=== PATIENT | female | born 1990 | race Caucasian/White ===

== ENCOUNTER 2020-03-18 20:43 | Emergency (ER) | payer SELFPAY ==
--- OUTSIDE RECORDS SUMMARY | 2020-03-18 20:52 | XMS REPORT | Continuity of Care Document ---
Author Organization Unknown Address Unknown Phone Unavailable Allergies Active Description Code Type Severity Reaction Onset Reported/Identified Relationship to Patient Clinical Status Yes penicillin NKMA N/A N/A 06/01/2016 Medications Medication Packaging Start Date St op Date Route Dosage Sig ondansetron(Zofran) 2 mL 06/01/2016 IV Push 4 mg 4 mg = 2 mL, IV Push, q30min, PRN: Nausea or Vomiting aspirin(aspirin) 4 tabs 06/01/2016 Oral 324 mg 324 mg = 4 tabs, Oral, Once, PRN: Other (See Comment) naproxen(Naprosyn) 2 tabs 06/01/2016 06/01/2016 Oral 500 mg 500 mg = 2 tabs, Oral, Once HYDROcodone-acetaminophen(No rco 5 mg-325 mg oral tablet) 1 tabs 06/01/2016 06/03/2016 Oral 1 tabs, Oral, q4 hr, for 2 days, PRN: as needed for pain, 12 tabs, 0 Refill(s) naproxen(Naprosyn 500 mg oral tablet) 1 tabs 06/01/2016 06/11/2016 Oral 500 mg 500 mg = 1 tabs, Oral, BID, for 10 days, PRN: as needed for pain, 20 tabs, 0 Refill(s) Divalproex Sodium 500 MG Ora l Tablet Delayed Release UD 12/22/2018 01/22/2019 ORAL 500MG 1 tab. at 4 am for 7 days th en 2 tab. at 4 am thereafter. Problems Date Dx Coded Attending Type Code Diagnosis Diagnosed By 06/04/2016 Sher Gee Final R07.8 9 Other chest pain 06/04/2016 Sher Gee Reason R07. 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 Margot Rodríguez 11/25/2018 F F31.32 Bip olar disorder, current episode depressed, moderate Margot Rodríguez 11/25/2018 F F41.1 Gene ralized anxiety disorder Salter Path, Margot Michele 11/25/2018 F F60.9 Pers onality disorder, unspecified Marcos, Margot Michele 11/25/2018 F Z56.0 Unem ployment, unspecified Marcos, Margotlara Michele 11/25/2018 F Z59.5 Extr luis f poverty Margot Rodríguez 11/25/2018 F Z75.3 Unav ailability and inaccessibility of health-care facilities Margot Rodríguez 11/25/2018 F F31.32 Bip olar disorder, current episode depressed, moderate Psy, Batch 11/25/2018 F F41.1 Gene ralized anxiety disorder Psy, Batch 11/25/2018 F F60.9 Pers onality disorder, unspecified Psy, Batch 12/22/2018 F 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 Lowe, Teodora 12/22/2018 F F31.32 Bip olar disorder, current episode depressed, moderate Lowe, Teodora 12/22/2018 F F41.1 Gene ralized anxiety disorder Lowe, Teodora 12/22/2018 F Z56.0 Unem ployment, unspecified Lowe, Teodora 01/05/2019 F 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 JaceNavid garnettley Heidi 01/05/2019 F F31.32 Bip olar disorder, current episode depressed, moderate Jace, Lizzie Heidi 01/05/2019 F F41.1 Gene ralized anxiety disorder Jace, Lizzie Heidi 01/05/2019 F Z56.0 Unem ployment, unspecified Jace, Lizzie Heidi Procedures Code Description [place] [address] Admi ssion Intake Margot Rodríguez 11/25/2018 28837 Admi ssion Intake Margot Rodríguez 11/25/2018 17167 OFFI CE/OUTPATIENT VISIT, Ubaldo Thapa 12/22/2018 52165 OFFI CE/OUTPATIENT VISIT, Ubaldo Thapa 12/22/2018 Results Test Result Range CBC With Platelet and Differential - 01:51 Absolute Basophils 0.03 10*3 0.00-0.20 Absolute Eosinophils 0.07 10*3 0.00-0.50 Absolute Lymphocytes 1.97 10*3 0.80-3.30 Absolute Monocytes 0.57 10*3 0.30-1.00 Absolute Neutrophils 3.66 10*3 1.90-7.00 Basophils 1 % 0-2 Eosinophils 1 % 0-4 HCT 39.9 % 37.0-47.0 HGB 13.0 g/dL 12.0-16.0 Immature Granulocytes 0.0 % 0.0-1.0 Lymphocytes 31 % 20-46 MCH 30.0 pg 27.0-32.0 MCHC 32.6 g/dL 32.0-36.0 MCV 91.9 fL 82.0-99.0 Monocytes 9 % 4-11 MPV 9.8 fL 9.4-12.4 Neutrophils 58 % 51-75 Platelet Count 360 K/uL 150-400 RBC 4.34 10*6/uL 4.00-5.20 RDW 13.3 % 11.5-14.5 WBC 6.3 K/uL 4.8-10.8 Comprehensive Metabolic Panel (CMP) - 01:51 Albumin 4.1 g/dL 3.5-4.8 Alkaline Phosphatase 70 U/L 26-104 ALT (SGPT) 13 U/L 14-54 Anion Gap 7 NA 3-20 AST (SGOT) 19 U/L 15-41 Bilirubin Total 0.9 mg/dL 0.2-1.2 BUN 11 mg/dL 4-20 Calcium 9.1 mg/dL 8.6-10.0 Chloride 109 mEq/L 99-109 CO2 24 mEq/L 22-32 Creatinine 0.89 mg/dL 0.44-1.03 Globulin 3.0 g/dL 1.9-4.3 Glucose 106 mg/dL 70-100 Potassium 3.6 mEq/L 3.6-5.1 Protein 7.1 g/dL 6.1-7.9 Sodium 140 mEq/L 136-144 eGFR - 06/01/16 01:51 eGFR >60 NA >60 Troponin - 06/01/16 01:51 Troponin <0.05 ng/mL <0.06 D-Dimer - 06/01/16 01:51 D-Dimer 336 ng/mL FEU 0-600 Troponin NPT - 06/01/16 02:02 Troponin NPT Negative NA Radiology Report from [id number] on 06/02 01:44:00 Reason For ExamChest painREPORTINDICATIO N: Chest pain.FINDINGS: Heart and lungs appeared normal. There is no pleural pathology.IMPRESSION: Negative.Dictated on workstation:[id number] FINAL DICTATED BY: CARLOS JONAS MDDICTATED DT/TM: 06/01/2016 6:42 AMSIGNED BY: CARLOS JONAS MDSIGNED (ELECTRONIC SIGNATURE): 06/01/2016 8:31 AMTECHNOLOGIST: ODIN POSADA RT(R)(M) Encounters ACCT No. Visit Date/Time Discharge Status Pt. Type Provider Facility Loc./Unit Complaint [id number] 08/19/2019 16:47:44 08/19/2019 23:59:5 9 CLS Outpatient Johnny Ferreira [id number] 06/01/2016 01:24:00 03:49:00 DIS Emergency Sher Gee [facility] chest wall pain [id number] 06/01/2016 05:18:04 Document Registration [id number] 06/01/2016 01:24:00 Document Registration [id number] 12/22/2018 10:00:00 12/22/2018 23:5 9:59 CLS Unknown
--- OUTSIDE RECORDS SUMMARY | 2020-03-18 20:52 | XMS REPORT | Referral Summary ---
Author Author [facility] Organization [facility] Address Unknown Phone Unavailable Care Team Providers Care Communications Manager Name Role Phone No PCP, Pt States PCP Encounter Date(s): 06/01/16 - 06/01/16 [facility] [address] [place] [id number] [phone] Discharge Diagnosis: Acute chest wall pain Discharge Disposition: 01-Home or Self Care Attending Physician: Sher Gee DO Admitting Physician: Sher Gee DO Vital Signs Most recent to 1 oldest [Reference Range]: Temperature Oral 36.7 degC [35.8-37.3 degC] (06/01/16 1:31 AM) Peripheral Pulse 66 bpm Rate [60-100 bpm] (06/01/16 1:31 AM) Heart Rate Monitored 56 bpm [60-100 bpm] *LOW* (06/01/16 3:34 AM) Respiratory Rate 7 br/min [14-20 br/min] *LOW* (06/01/16 3:34 AM) Blood Pressure 94/63 mmHg [90-140/60-90 mmHg] (06/01/16 3:34 AM) Mean Arterial 69 mmHg Pressure, Cuff (06/01/16 3:34 AM) SpO2 99 % (06/01/16 3:34 AM) Problem List Condition Effective Dates Status Health Status Informan t Hypoglycemia(Confirm Active ed) Allergies, Adverse Reactions, Alerts Substance Reaction Severity Status penicillin Active Medications Naprosyn 500 mg oral tablet 500 mg 1 tabs, Oral, BID, as needed for pain, X 10 days, # 20 tabs, 0 Refill(s) Start Date: 06/01/16 Stop Date: 06/11/16 Status: Ordered Gays 5 mg-325 mg oral tablet 1 tabs, Oral, q4hr, as needed for pain, X 2 days, # 12 tabs, 0 Refill(s) Start Date: 06/01/16 Stop Date: 06/03/16 Status: Ordered Results Hematology Most recent to 1 oldest [Reference Range]: WBC [4.8-10.8 6.3 10*3/uL 10*3/uL] (06/01/16 1:51 AM) RBC [4.00-5.20] 4.34 (06/01/16 1:51 AM) Hgb [12.0-16.0 13.0 gm/dL gm/dL] (06/01/16 1:51 AM) Hct [37.0-47.0 %] 39.9 % (06/01/16 1:51 AM) MCV [82.0-99.0 fL] 91.9 fL (06/01/16 1:51 AM) MCH [27.0-32.0 pg] 30.0 pg (06/01/16 1:51 AM) MCHC [32.0-36.0 32.6 gm/dL gm/dL] (06/01/16 1:51 AM) RDW [11.5-14.5 %] 13.3 % (06/01/16 1:51 AM) Platelet [150-400 360 10*3/uL 10*3/uL] (06/01/16 1:51 AM) MPV [9.4-12.4 fL] 9.8 fL (06/01/16 1:51 AM) Immature 0.0 % Granulocytes (06/01/16 1:51 AM) [0.0-1.0 %] Neutrophils [51-75 58 % %] (06/01/16 1:51 AM) Lymphocytes [20-46 31 % %] (06/01/16 1:51 AM) Monocytes [4-11 %] 9 % (06/01/16 1:51 AM) Eosinophils [0-4 %] 1 % (06/01/16 1:51 AM) Basophils [0-2 %] 1 % (06/01/16 1:51 AM) Neutro Absolute 3.66 10*3 [1.90-7.00 10*3] (06/01/16 1:51 AM) Lymph Absolute 1.97 10*3 [0.80-3.30 10*3] (06/01/16 1:51 AM) [place] Absolute 0.57 10*3 [0.30-1.00 10*3] (06/01/16 1:51 AM) Eos Absolute 0.07 10*3 [0.00-0.50 10*3] (06/01/16 1:51 AM) Baso Absolute 0.03 10*3 [0.00-0.20 10*3] (06/01/16 1:51 AM) Coagulation Most recent to 1 oldest [Reference Range]: D-Dimer [0-600 336 ng{FEU}/mL 1 ng{FEU}/mL] (06/01/16 1:51 AM) 1Result Comment: A D Dimer result of <500 ng/mL FEU has a negative predictive value of approximately 100% for the exclusion of DVT and acute PE. Chemistry Most recent to 1 oldest [Reference Range]: Sodium Lvl [136-144 140 mEq/L mEq/L] (06/01/16 1:51 AM) Potassium Lvl 3.6 mEq/L [3.6-5.1 mEq/L] (06/01/16 1:51 AM) Chloride [99-109 109 mEq/L mEq/L] (06/01/16 1:51 AM) CO2 [22-32 mEq/L] 24 mEq/L (06/01/16 1:51 AM) AGAP [3-20] 7 (06/01/16 1:51 AM) BUN [4-20 mg/dL] 11 mg/dL (06/01/16 1:51 AM) Glucose Lvl [70-100 106 mg/dL mg/dL] *HI* (06/01/16 1:51 AM) Creatinine Lvl 0.89 mg/dL [0.44-1.03 mg/dL] (06/01/16 1:51 AM) eGFR [>60] >60 1 (06/01/16 1:51 AM) Calcium Lvl 9.1 mg/dL [8.6-10.0 mg/dL] (06/01/16 1:51 AM) Albumin Lvl [3.5-4.8 4.1 gm/dL gm/dL] (06/01/16 1:51 AM) Total Protein 7.1 gm/dL [6.1-7.9 gm/dL] (06/01/16 1:51 AM) Globulin [1.9-4.3 3.0 gm/dL gm/dL] (06/01/16 1:51 AM) ALT [14-54 U/L] 13 U/L *LOW* (06/01/16 1:51 AM) AST [15-41 U/L] 19 U/L (06/01/16 1:51 AM) Alk Phos [26-104 70 U/L U/L] (06/01/16 1:51 AM) Bili Total [0.2-1.2 0.9 mg/dL 2 mg/dL] (06/01/16 1:51 AM) Troponin [<0.06 <0.05 ng/mL ng/mL] (06/01/16 1:51 AM) Troponin-POC Negative (06/01/16 2:02 AM) 1Result Comment: Multiply eGFR results by 1.21 for race. 2Result Comment: Naproxen, specifically the metabolite O-desmethylnaproxen, may cause spurious elevation in Total Bilirubin levels. Immunizations No data available for this section Procedures No data available for this section Social History Social History Type Response Smoking Status Current some day smoker; Ty pe: Cigarettes; Type: Oral Assessment and Plan No data available for this section
[2020-03-18 21:19] LABS: CLARITY,URINE CLOUDY; COLOR,URINE YELLOW
[2020-03-18 21:20] LABS: BACTERIA,URINE LARGE /HPF; BILIRUBIN,URINE NEGATIVE (NEGATIVE); GLUCOSE, URINE (UA) NEGATIVE (NEGATIVE); KETONES,URINE NEGATIVE (NEGATIVE); LEUKOCYTE ESTERASE ,URINE 3+ (NEGATIVE); NITRITE,URINE POSITIVE (NEGATIVE); PROTEIN,URINE 2+ (NEGATIVE); WBC,URINE TNTC /HPF
[2020-03-18] MEDS ORDERED: TRM50T PO (21:42)
[2020-03-18] MEDS ORDERED: ONDA4TAB11 PO (21:42)
[2020-03-18] MEDS ORDERED: CIPR500T4 PO (21:42)
--- NOTE | 2020-03-18 21:42 | ED General ---
General Chief Complaint: Back Problems Stated Complaint: LOW BACK PAIN Nursing Triage Note: Pt complaining of bilateral lower back pain for 2 days Nursing Sepsis Screen: No Definite Risk Exam Limitations: No Limitations History of Present Illness Date Seen by Provider: Mar 18, 2020 Time Seen by Provider: 21:20 Initial Comments Patient is a 29-year-old female presents with bilateral lower flank pain, nausea and dysuria. Symptoms began 3 days ago. Patient denies fever, vomiting, chills sweats. Patient's been drinking cranberry juice and Gatorade for electrolytes with little improvement. Patient denies history of kidney stones. Patient prefers female partners and does not engage in sex with men denies possibility of Timing/Duration: 1-3 Hours Severity: Moderate Associated Systoms: Nausea/Vomiting Allergies and Home Medications Allergies Coded Allergies: Penicillins (Verified Allergy, Unknown, 03/18/20) Patient Home Medication List Home Medication List Reviewed: Yes Review of Systems Review of Systems Constitutional: see HPI EENTM: see HPI Respiratory: see HPI Cardiovascular: see HPI Gastrointestinal: no symptoms reported Genitourinary: see HPI Musculoskeletal: back pain Past Ckehlwp-Lhxxov-Djlyfw Hx Past Med/Social Hx: Reviewed Nursing Past Med/Soc Hx Patient Social History Recent Foreign Travel: No Contact w/Someone Who Travel: No Recent Infectious Disease Expo: No Recent Hopitalizations: No Physical Abuse: No Sexual Abuse: No Past Medical History Surgeries: Yes Adenoidectomy, Tonsillectomy Respiratory: No Cardiac: No Neurological: No Genitourinary: No Gastrointestinal: No Musculoskeletal: No Endocrine: No HEENT: No Cancer: No Psychosocial: Yes Bipolar Integumentary: No Blood Disorders: No Physical Exam Vital Signs Vital Signs - First Documented 03/18/20 21:00 Temp 36.0 Pulse 118 Resp 14 B/P (MAP) 138/79 (98) Pulse Ox 96 O2 Delivery Room Air Capillary Refill : Less Than 3 Seconds Height, Weight, BMI Height: '" Weight: lbs. oz. kg; BMI Method: General Appearance: WD/WN Eyes: Bilateral Eye Normal Inspection, Bilateral Eye PERRL, Bilateral Eye EOMI HEENT: PERRL/EOMI, Normal ENT Inspection, Pharynx Normal Neck: Supple Respiratory: Lungs Clear Cardiovascular: Regular Rate, Rhythm Gastrointestinal: Soft Back: CVA Tenderness (L), CVA Tenderness (R) Neurologic/Psychiatric: Alert, Oriented x3 Focused Exam Sepsis Stage: Ruled Out Progress/Results/Core Measures Suspected Sepsis Recent Fever Within 48 Hours: No Infection Criteria Present: None New/Unexplained Altered Menta: No Sepsis Screen: No Definite Risk SIRS Temperature: Pulse: 118 Respiratory Rate: 14 Blood Pressure 138 /79 Mean: 98 Results/Orders Lab Results Laboratory Tests Test 03/18/20 21:00 Range/Units Urine Color YELLOW Urine Clarity CLOUDY Urine pH 6.0 5-9 Urine Specific [place] <=1.005 1.016-1.022 Urine Protein 2+ H NEGATIVE Urine Glucose (UA) NEGATIVE NEGATIVE Urine Ketones NEGATIVE NEGATIVE Urine Nitrite POSITIVE H NEGATIVE Urine Bilirubin NEGATIVE NEGATIVE Urine Urobilinogen 0.2 < = 1.0 MG/DL Urine Leukocyte Esterase 3+ H NEGATIVE Urine RBC (Auto) 3+ H NEGATIVE Urine RBC NONE /HPF Urine WBC TNTC H /HPF Urine Squamous Epithelial Cells 10-25 H /HPF Urine Crystals NONE /LPF Urine Bacteria LARGE H /HPF Urine Casts NONE /LPF Urine Mucus NEGATIVE /LPF Urine Culture Indicated YES My Orders Orders - BLAS GUZMÁN DO Ua Culture If Indicated (03/18/20 21:17) Urine Culture (03/18/20 21:00) Ketorolac Injection (Toradol Injection) (03/18/20 21:45) Levofloxacin Tablet (Levaquin Tablet) (03/18/20 21:45) Vital Signs/I&O 03/18/20 21:00 Temp 36.0 Pulse 118 Resp 14 B/P (MAP) 138/79 (98) Pulse Ox 96 O2 Delivery Room Air Capillary Refill : Less Than 3 Seconds Blood Pressure Mean: 98 Departure Impression Primary Impression: Pyelonephritis Disposition: 01 HOME, SELF-CARE Condition: Stable Departure-Patient Inst. Decision time for Depature: 21:40 Referrals: NO,LOCAL PHYSICIAN (PCP/Family) Primary Care Physician Patient Instructions: Kidney Infection Add. Discharge Instructions: Please increase fluids and take tramadol for pain and continue antibiotics nausea medication as directed. Follow up with your PCP for urine culture result. Return to ED if new or worsening symptoms. All discharge instructions reviewed with patient and/or family. Voiced understanding. Scripts Tramadol HCl (Tramadol HCl) 50 Mg Tablet 50 MG PO Q4H PRN for PAIN-MODERATE (5-7), #10 TAB Prov: BLAS GUZMÁN DO 03/18/20 Ciprofloxacin HCl (Ciprofloxacin HCl) 500 Mg Tablet 500 MG PO BID, #14 TAB Prov: BLAS GUZMÁN DO 03/18/20 Ondansetron (Ondansetron Odt) 4 Mg Tab.rapdis 4 MG PO Q6H, #10 TAB Prov: BLAS GUZMÁN DO 03/18/20 BLAS GUZMÁN DO Mar 18, 2020 21:42
[2020-03-18] MEDS ORDERED: LEVOFLOXACIN 500 MG TAB (LEVAQUIN) PO ONE (21:45)
[2020-03-18] MEDS ORDERED: KETOROLAC 60 MG/2 ML VIAL IM ONE (21:45)
[2020-03-18 21:53] VITALS: BP 132/78
== END 2020-03-18 21:53 | disposition home or self-care (01) ==
LOC: ER FS 20:48
DX: N12 Tubulo-interstitial nephritis, not specified as acute or chronic (principal); F31.9 Bipolar disorder, unspecified; Z88.0 Allergy status to penicillin
CPT/HCPCS: 81000; 87077; 87088; 87186; 99284

== ENCOUNTER 2022-01-02 21:21 | Emergency (ER) | payer BC ==
[~2022-01-02] VITALS: Ht 167.7 cm; Wt 116.7 kg
[~2022-01-02 21:21] MED LIST: CIPR500T5 PO; ONDA4TAB11 PO; TRM50T PO
[2022-01-02] MEDS ORDERED: ORPHENADRINE 60 MG/2 ML (NORFLEX) AMP (ED ONLY) IM ONE (21:45)
[2022-01-02] MEDS ORDERED: KETOROLAC 60 MG/2 ML VIAL IM ONE (21:45)
--- NOTE | 2022-01-02 21:47 | ED Back Pain ---
General Chief Complaint: Back Problems Stated Complaint: LOWER L BACK PAIN Source of Information: Patient Exam Limitations: No Limitations History of Present Illness Date Seen by Provider: January 02, 2022 Time Seen by Provider: 21:23 Initial Comments Patient to the ER by private conveyance with her significant other chief complaint that she had to get off work working for the [employer] because her back pain was too great for the past 2 days. She last took some Aleve 2:00 this morning. She works night shifts. She lifts heavy things upwards of 75 to 100 pounds. She has been using topical ointments with CBD. No dysuria or history of kidney stones. Pain is mostly in her left lower lumbar spine not radiating down the buttock. No numbness weakness, saddle anesthesia, loss of control of bladder or bowel. No previous trauma or imaging of the back. She rates her pain as a 10 0.5 out of 5 Allergies and Home Medications Allergies Coded Allergies: Penicillins (Verified Allergy, Unknown, 03/18/20) Patient Home Medication List Home Medication List Reviewed: Yes Cyclobenzaprine HCl (Cyclobenzaprine HCl) 10 Mg Tablet, 10 MG PO Q8H PRN for SPASMS Prescribed by: ANURAG LEES on 01/02/222147 Discontinued Medications Ciprofloxacin HCl (Ciprofloxacin HCl) 500 Mg Tablet, 500 MG PO BID Discontinued Reason: Referral/FU Appt-Addtl Prescribed by: BLAS GUZMÁN on 03/18/202141 Last Action: Discontinued Ondansetron (Ondansetron Odt) 4 Mg Tab.rapdis, 4 MG PO Q6H Discontinued Reason: Referral/FU Appt-Addtl Prescribed by: BLAS GUZMÁN on 03/18/202141 Last Action: Discontinued Tramadol HCl (Tramadol HCl) 50 Mg Tablet, 50 MG PO Q4H PRN for PAIN-MODERATE (5- 7) Discontinued Reason: Referral/FU Appt-Addtl Prescribed by: BLAS GUZMÁN on 03/18/202141 Last Action: Discontinued Review of Systems Constitutional: No chills, No fever EENTM: No ear discharge, No ear pain Respiratory: No cough, No short of breath Cardiovascular: No chest pain, No edema Gastrointestinal: No abdominal pain, No nausea Genitourinary: No discharge, No dysuria Musculoskeletal: back pain; No joint pain Skin: No pruritus, No rash All Other Systems Reviewed Negative Unless Noted: Yes Past Koqujbm-Ruchjn-Pjkydr Hx Patient Social History Tobacco Use?: Yes Smokeless Tobacco Frequency: Unknown if Ever Used E-Cig or Vaping type used: Nicotine Use of E-Cig and/or Vaping [place]: Current Everyday User Substance use?: No Alcohol Use?: Yes Alcohol Frequency: Once in a while Pt feels they are or have been: No Immunizations Up To Date Influenza Vaccine Up-to-Date: No; Not Current First/Initial COVID19 Vaccinat: unvaccinated Past Medical History Surgery/Hospitalization HX: T&A, Hx concussions Surgeries: Yes Adenoidectomy, Tonsillectomy Respiratory: No Cardiac: No Neurological: No Genitourinary: No Gastrointestinal: No Musculoskeletal: No Endocrine: No HEENT: No Cancer: No Psychosocial: Yes Bipolar Integumentary: No Blood Disorders: No Physical Exam Vital Signs Vital Signs - First Documented 01/02/22 21:26 Temp 36.7 Pulse 82 Resp 16 B/P (MAP) 104/67 (79) Pulse Ox 98 O2 Delivery Room Air Capillary Refill : Height, Weight, BMI Height: '" Weight: lbs. oz. kg; BMI Method: General Appearance: WD/WN, Mild Distress HEENT: Pharynx Normal, Moist Mucous Membranes Neck: Full Range of Motion, Normal Inspection Cardiovascular: No Edema, Normal Peripheral Pulses Respiratory: No Accessory Muscle Use, No Respiratory Distress Back: Normal Inspection, No CVA Tenderness, Muscle Spasm (Left worse than right lumbar spine), Vertebral Tenderness (Lumbar and paralumbar muscle spasms) Extremity: Normal Capillary Refill, Normal Inspection Neurologic/Psychiatric: Alert, Oriented x3, No Motor/Sensory Deficits Skin: Normal Color, Warm/Dry Progress/Results/Core Measures Results/Orders My Orders Orders - ANURAG LEES Ketorolac Injection (Toradol Injection) (01/02/22 21:45) Orphenadrine Inj (Ed Only) (Norflex Inje (01/02/22 21:45) Medications Given in ED Current Medications Medications Dose Ordered Sig/Elise Route Start Time Stop Time Status Last Admin Dose Admin Ketorolac Tromethamine 60 mg ONCE ONCE IM 01/02/22 21:45 01/02/22 21:46 DC 01/02/22 21:45 60 MG Orphenadrine Citrate 60 mg ONCE ONCE IM 01/02/22 21:45 01/02/22 21:46 DC 01/02/22 21:46 60 MG Vital Signs/I&O 01/02/22 01/02/22 21:26 21:45 Temp 36.7 36.7 Pulse 82 Resp 16 B/P (MAP) 104/67 (79) Pulse Ox 98 O2 Delivery Room Air Progress Progress Note : Time: 21:44 Progress Note She states she is not able to get off work for the next couple days but were going to excuse her for tonight put her on a weight restriction and give her some Toradol and Norflex. We will give her some muscle relaxants and have her take naproxen twice a day and follow-up in 1 week with primary care if not seeing improvement. We encouraged back brace and discussed preventative measures as well as core strengthening exercises Departure Impression Primary Impression: Lumbago Qualified Codes: M54.50 - Low back pain, unspecified Disposition: 01 HOME, SELF-CARE Condition: Stable Departure-Patient Inst. Decision time for Depature: 21:45 Referrals: NO,LOCAL PHYSICIAN (PCP/Family) Primary Care Physician Patient Instructions: Low Back Pain (DC) Add. Discharge Instructions: Start taking Aleve/naproxen 2 tablets twice a day on a routine basis for the next 1 to 2 weeks until your pain improves. Tylenol 1000 mg every 8 hours as needed for breakthrough pain. Continue using topical creams. You might consider patches such as Salonpas or lidocaine patches. If you have muscle spasms in your back or neck then you can use Flexeril/cyclobenzaprine 1/2-1 tablet every 8 hours as needed. Do not mix with alcohol, long road trips, or operating heavy machinery. Do not lift more than 40 pounds for 1 week. If not seeing improvement in 1 to 2 weeks then call your primary care doctor for a follow-up appointment to discuss the neck step in management. Promptly return to the nearest ER if you are experiencing numbness in your saddle region, loss of control of your bowel or bladder or inability to stand due to weakness, not pain. All discharge instructions reviewed with patient and/or family. Voiced understanding. Scripts Cyclobenzaprine HCl (Cyclobenzaprine HCl) 10 Mg Tablet 10 MG PO Q8H PRN for SPASMS, #20 TAB 0 Refills Prov: ANURAG LEES 01/02/22 Work/School Note: Work Release Form Date Seen in the Emergency Department: January 02, 2022 Return to Work: January 03, 2022 Restrictions: Need Release from Doctor Other Restrictions Listed Below: Do not lift/push/pull more than 40 pounds until 01/09/2022. ANURAG LEES January 02, 2022 21:47
[2022-01-02] MEDS ORDERED: CYCL10TA25 PO (21:48)
[2022-01-02 21:52] VITALS: BP 104/67
== END 2022-01-02 21:52 | disposition home or self-care (01) ==
LOC: EDUNIT# 21:21 → ER FS 21:22
DX: M54.50 Low back pain, unspecified (principal); M62.830 Muscle spasm of back; F17.290 Nicotine dependence, other tobacco product, uncomplicated
CPT/HCPCS: 99284